=== PATIENT | male | born 1995 | race Caucasian/White ===

== ENCOUNTER 2017-04-30 14:38 | Emergency (ER) | payer BC, OTHER ==
[~2017-04-30] VITALS: Ht 182.9 cm; Wt 9.1 kg
[2017-04-30] MEDS ORDERED: HYDR-3062 PO (15:03)
--- NOTE | 2017-04-30 15:12 | ED Upper Extremity ---
General Chief Complaint: Upper Extremity Stated Complaint: DRILL BIT THROUGH LEFT HAND Nursing Triage Note: AMB TO ROOM REPORTS THAT WAS USING DRLL BIT AND BIT WENT THROUGH BETWEEN 1ST AND 2ND WEB SPACE. TOOK 5MG HYDROCODONE NOT HELPING Nursing Sepsis Screen: No Definite Risk Source: patient Exam Limitations: no limitations History of Present Illness Date Seen by Provider: Apr 30, 2017 Time Seen by Provider: 14:55 Initial Comments Here with report of injury to the left hand. He was screwing a board into a tree when his Larose screwdriver bit came off the screw and he stuck himself in the hand. States he had to pull a bit out. No significant bleeding yesterday. Today he has increased swelling and pain and is concerned about it. He tried a pain pill and that did not help. Tetanus is less than 5 years old. Onset: yesterday Severity: moderate Pain/Injury Location: left hand Method of Injury: direct blow, other (puncture wound) Modifying Factors: Improves With Immobilization, Worse With Movement Allergies and Home Medications Allergies Coded Allergies: No Known Drug Allergies (Unverified , 04/30/17) Home Medications Hydrocodone/Acetaminophen 1 Each Tablet, 1 EACH PO, (Reported) Constitutional: see HPI, No chills, No fever, No weakness Respiratory: no symptoms reported Cardiovascular: no symptoms reported Musculoskeletal: see HPI, joint pain, joint swelling, muscle pain, muscle stiffness Skin: see HPI, change in color, lesions Psychiatric/Neurological: No Symptoms Reported Past Khageqw-Fgppkp-Ixzcam Hx Patient Social History Alcohol Use: Occasionally Uses Recreational Drug Use: No Type Used: Electronic/Vapor 2nd Hand Smoke Exposure: Yes Recent Foreign Travel: No Contact w/Someone Who Travel: No Recent Infectious Disease Expo: No Surgeries History of Surgeries: No Respiratory History of Respiratory Disorde: No Cardiovascular History of Cardiac Disorders: No Neurological History of Neurological Disord: No Genitourinary History of Genitourinary Disor: No Gastrointestinal History of Gastrointestinal Di: No Musculoskeletal History of Musculoskeletal Dis: No Endocrine History of Endocrine Disorders: No Reviewed Nursing Assessment Reviewed/Agree w Nursing PMH: Yes Family Medical History Significant Family History: No Pertinent Family Hx Physical Exam Vital Signs Vital Signs - First Documented 04/30/17 14:46 Temp 97.9 Pulse 72 Resp 18 B/P (MAP) 136/68 (90) O2 Delivery Room Air Capillary Refill : Less Than 3 Seconds General Appearance: WD/WN, no apparent distress Cardiovascular: regular rate, rhythm, no murmur Respiratory: lungs clear, normal breath sounds Hand: Left, limited ROM, soft tissue tenderness, stiffness, swelling (web space on the dorsum of the left hand has a puncture wound in the middle of the web space with a small abrasion lateral. Swelling, tenderness and warmth noted over the area.) Neurologic/Psychiatric: alert, oriented x 3 Skin: warm/dry, other (here in the noted to the hand as discussed above. Wound track reportedly perpendicular to the second metacarpal just proximal to the MTP area) Progress/Results/Core Measures Results/Orders My Orders Orders - NORY PATEL MD Hand, Left, 3 Views (04/30/17 15:00) Clindamycin Capsule (Cleocin Capsule) (04/30/17 15:43) Vital Signs/I&O Vital Sign - Last 12Hours 04/30/17 14:46 Temp 97.9 Pulse 72 Resp 18 B/P (MAP) 136/68 (90) O2 Delivery Room Air Blood Pressure Mean: 90 Progress Note : Progress Note Seen and evaluated. X-ray left hand. 1545: No acute findings on x-ray. Clindamycin 300 mg by mouth ordered. We will continue the outpatient for 7 days. Return precautions discussed. Discharged home with return precautions. Patient verbalize understanding instructions and agreement with plan. Diagnostic Imaging Diagonstic Imaging: Xray Plain Films/CT/US/NM/MRI: chest, other (hand) Comments NAME: EMMA CERNA [facility] REC#: [id number] PT STATUS: REG ER : 1995 PHYSICIAN: NORY PATEL MD ADMIT DATE: 04/30/17/ER Signed Date of Exam: 04/30/17 HAND, LEFT, 3 VIEWS INDICATION: Penetration injury with a drill bit between the first and second metacarpals. TIME OF EXAM: 03:27 p.m. FINDINGS: Three views of the left hand were obtained. The metacarpals are intact. No fracture is seen. The phalanges are unremarkable. The carpus is unremarkable. No radiopaque foreign body is detected. IMPRESSION: No acute feature is detected. Dictated by: Dictated on workstation # [id number] Dict: 04/30/17 1517 Trans: 04/30/17 1526 Interpreted by: ROSAURA ZHONG MD Electronically signed by: ROSAURA ZHONG MD 04/30/17 1526 Departure Impression Impression: Primary Impression: Soft tissue infection Additional Impression: Puncture wound of left hand Disposition: HOME, SELF-CARE Condition: Stable Departure-Patient Inst. Decision time for Depature: 15:48 Referrals: NO,LOCAL PHYSICIAN (PCP/Family) Primary Care Physician Patient Instructions: Cellulitis (Skin Infection), Adult (DC) Add. Discharge Instructions: All discharge instructions reviewed with patient and/or family. Voiced understanding. You may take ibuprofen 800 mg every 8 hours as needed for pain. You may take Tylenol 1000 mg every 8 hours as needed for pain. Elevate hand often to decrease swelling. You may soak wound in salt water 3 times a day to help decrease swelling. You may use antibiotic ointment and a Band-Aid over wound 3 times daily as needed. Keep wound clean and dry otherwise. You may shower but do not soak in the bathtub or pool. Follow-up with your Dr. in a few days for recheck as needed. Return for worse pain, red streaks up the arm, foul- smelling drainage, fever or other concerns as needed. Scripts Clindamycin HCl (Clindamycin HCl) 300 Mg Capsule 300 MG PO QID, #28 CAP 0 Refills Prov: NORY PATEL MD 04/30/17 NORY PATEL MD Apr 30, 2017 15:12
--- NOTE | 2017-04-30 15:20 | Diagnostic Imaging Report ---
INDICATION: Penetration injury with a drill bit between the first and second metacarpals. TIME OF EXAM: 03:27 p.m. FINDINGS: Three views of the left hand were obtained. The metacarpals are intact. No fracture is seen. The phalanges are unremarkable. The carpus is unremarkable. No radiopaque foreign body is detected. IMPRESSION: No acute feature is detected. Dictated by: Dictated on workstation # [id number]
[2017-04-30] MEDS ORDERED: CLINDAMYCIN 150 MG (CLEOCIN) CAP PO STA (15:43)
[2017-04-30] MEDS ORDERED: CLIN300C11 PO (15:52)
[2017-04-30 16:09] VITALS: BP 136/68
== END 2017-04-30 16:09 | disposition home or self-care (01) ==
LOC: ER 14:43
DX: T79.8XXA Other early complications of trauma, initial encounter (principal); S61.432A Puncture wound without foreign body of left hand, initial encounter; Z77.22 Contact with and (suspected) exposure to environmental tobacco smoke (acute) (chronic); W27.8XXA Contact with other nonpowered hand tool, initial encounter
CPT/HCPCS: 73130

== ENCOUNTER 2018-05-26 18:38 | Emergency (ER) | payer BC ==
[~2018-05-26] VITALS: Ht 188 cm; Wt 99.8 kg
[~2018-05-26 18:38] MED LIST: CLIN300C11 PO; HYDR-3062 PO
[2018-05-26] MEDS ORDERED: AMOX-358 PO (19:56)
--- NOTE | 2018-05-26 19:56 | ED General ---
General Chief Complaint: Bite-Animal/Human/Insect Stated Complaint: DOG BITE ON FACE Nursing Triage Note: PT REPORTS WORKING FOR [employer] AND HAVING A [employer] SHORT HAIR DOG BITE HIM ON HIS FACE THIS AM. PT STATES HE IS NOW IN MORE PAIN THAN THIS MORNING AND BITE MURPHY ARE NOW OOZING. Nursing Sepsis Screen: No Definite Risk Source of Information: Patient Exam Limitations: No Limitations History of Present Illness Date Seen by Provider: May 26, 2018 Time Seen by Provider: 19:52 Initial Comments To ER with reports of a dog bite. This was determined short hair that bit the right side of his face at about 10 AM this morning. Uncertain about tetanus vaccination. No allergies. He states that the dog is up-to-date on rabies vaccinations Severity: Moderate Associated Systoms: Denies Symptoms Allergies and Home Medications Allergies Coded Allergies: No Known Drug Allergies (Unverified , 05/26/18) Home Medications Amoxicillin/Potassium Clav 1 Each Tablet, 1 EACH PO BID Prescribed by: CIRO VOSS on 05/26/181955 Clindamycin HCl 300 Mg Capsule, 300 MG PO QID Prescribed by: NORY PATEL on 04/30/17 1552 Patient Home Medication List Home Medication List Reviewed: Yes Review of Systems Review of Systems Constitutional: see HPI EENTM: see HPI Respiratory: no symptoms reported Cardiovascular: no symptoms reported Genitourinary: no symptoms reported Musculoskeletal: no symptoms reported Skin: no symptoms reported Psychiatric/Neurological: No Symptoms Reported Hematologic/Lymphatic: No Symptoms Reported Immunological/Allergic: no symptoms reported Past Suarlbv-Zesbws-Hozvnz Hx Patient Social History Alcohol Use: Rarely Uses Alcohol Beverage of Choice: Beer Recreational Drug Use: No Type Used: Electronic/Vapor 2nd Hand Smoke Exposure: Yes Recent Foreign Travel: No Contact w/Someone Who Travel: No Recent Infectious Disease Expo: No Recent Hopitalizations: No Seasonal Allergies Seasonal Allergies: No Past Medical History Surgeries: No Respiratory: No Cardiac: No Neurological: No Genitourinary: No Gastrointestinal: No Musculoskeletal: No Endocrine: No Integumentary: No Family Medical History No Pertinent Family Hx Physical Exam Vital Signs Vital Signs - First Documented 05/26/18 19:15 Temp 97.9 Pulse 74 Resp 13 B/P (MAP) 125/63 (83) Pulse Ox 98 Capillary Refill : Less Than 3 Seconds Height, Weight, BMI Height: 6'2.00" Weight: 220lbs. oz. 99.297565vb; BMI Method:Stated General Appearance: No Apparent Distress, WD/WN Eyes: Bilateral Eye Normal Inspection, Bilateral Eye PERRL, Bilateral Eye EOMI HEENT: PERRL/EOMI, TMs Normal Neck: Full Range of Motion, Normal Inspection, Other (a few <1cm laceration to right side of bridge of nose and right upper lip. Nothing to be sutured. No bleeding wounds. These were cleaned with chlorhexidine. ) Respiratory: No Accessory Muscle Use, No Respiratory Distress Cardiovascular: Regular Rate, Rhythm, Normal Peripheral Pulses Neurologic/Psychiatric: Alert, Oriented x3 Skin: Normal Color, Warm/Dry Progress/Results/Core Measures Suspected Sepsis Recent Fever Within 48 Hours: No Infection Criteria Present: None New/Unexplained Altered Menta: No Sepsis Screen: No Definite Risk SIRS Temperature:97.9 Pulse: 74 Respiratory Rate: 13 Blood Pressure 125 /63 Mean: 83 Results/Orders My Orders Orders - CIRO VOSS APRN Dipht,Pertuss(Acell),Tet Adult (Boostrix (05/26/18 20:00) Amoxicillin/Clavulanate Tablet (Augmenti (05/26/18 20:00) Rx-Hydrocodone/Apap 5-325 Mg (Rx-Vicodin (05/26/18 20:00) Vital Signs/I&O 05/26/18 19:15 Temp 97.9 Pulse 74 Resp 13 B/P (MAP) 125/63 (83) Pulse Ox 98 Capillary Refill : Less Than 3 Seconds Blood Pressure Mean: 83 Departure Impression Primary Impression: Dog bite Qualified Codes: W54.0XXA - Bitten by dog, initial encounter Disposition: 01 HOME, SELF-CARE Condition: Stable Departure-Patient Inst. Decision time for Depature: 19:55 Referrals: NO,LOCAL PHYSICIAN (PCP/Family) Primary Care Physician Patient Instructions: Animal Bites (DC) Add. Discharge Instructions: 1. You may shower leading warm water run over this area, clean with soap and water gently twice daily. Return to ER for any concerns. Take the antibiotic as directed. Follow-up with your doctor later next week. All discharge instructions reviewed with patient and/or family. Voiced understanding. Scripts Amoxicillin/Potassium Clav (Augmentin 875-125 Tablet) 1 Each Tablet 1 EACH PO BID, #10 TAB Prov: CIRO VOSS APRN 05/26/18 Work/School Note: Work Release Form Date Seen in the Emergency Department: May 26, 2018 Return to Work: May 28, 2018 CIRO VOSS APRN May 26, 2018 19:56
[2018-05-26] MEDS ORDERED: TETANUS,DIPTH,PERTUSS P/F (BOOSTRIX) 0.5 ML VIAL IM ONE (20:00)
[2018-05-26] MEDS ORDERED: AUGMENTIN 875 MG TAB (AMOXICILLIN/CLAVULANATE) PO SCH (20:00)
[2018-05-26] MEDS ORDERED: RX-HYDROCODONE/APAP 5/325 MG #4 TAB PK PO PRN (20:00)
[2018-05-26 20:08] VITALS: BP 125/63
== END 2018-05-26 20:08 | disposition home or self-care (01) ==
LOC: EDUNIT# 18:38 → ER 18:39
DX: S01.85XA Open bite of other part of head, initial encounter (principal); Z23 Encounter for immunization; W54.0XXA Bitten by dog, initial encounter
CPT/HCPCS: 90715; 99283

== ENCOUNTER 2018-05-30 21:06 | Emergency (ER) | payer BC ==
[~2018-05-30 21:06] MED LIST changes: +AMOX-358 PO
--- NOTE | 2018-05-30 22:22 | NUR ---
pt. lwbs at 2213.
== END 2018-05-30 22:13 | disposition left against medical advice (07) ==
LOC: EDUNIT# 21:06 → ER 21:07
DX: S99.912A Unspecified injury of left ankle, initial encounter (principal); X58.XXXA Exposure to other specified factors, initial encounter